=== PATIENT | male | born 1960 | race Caucasian/White ===

== ENCOUNTER 2017-12-12 22:17 | Emergency (ER) | payer MEDICARE, MEDICAID ==
[~2017-12-12] VITALS: Ht 170.2 cm; Wt 72.6 kg
[~2017-12-12 22:17] MED LIST: ATOR10TA52; CARV12.544; DILANTIN; DIVA500T7; LEVE500T3; METF500T5
[2017-12-13] MEDS ORDERED: SODIUM CHLORIDE 0.9% 1,000 ML IVB ONE (03:43)
[2017-12-13] MEDS ORDERED: LEVETIRACETAM INJ 1,000 MG in D5W 5% 100 ML IV ONE (03:45)
[2017-12-13 04:05] LABS: Basophils # (auto) 0.1 uL; Basophils % (auto) 1.2 % (0.0-2.0); Eosinophils # (auto) 0.3 uL; Eosinophils % (auto) 3.3 % (0.0-7.0); Hematocrit 44.4 % (41.0-53.0); Lymphocytes # (auto) 2.2 uL; Lymphocytes % (auto) 25.9 % (10.0-50.0); Mean Corpuscular Hemoglobin 30.3 pg (28.0-32.0); Mean Corpuscular Hgb Conc. 33.8 g/dL (32.0-36.0); Mean Corpuscular Volume 89.7 fL (80.0-100.0); Monocytes % (auto) 11.5 % (0.0-12.0); Neutrophils % (auto) 58.1 % (37.0-80.0); Platelet Count (auto) 206 10^3/uL (140-450); Red Blood Cells 4.95 10^6/uL (4.5-5.90); Red Cell Distribution Width 13.7 % (11.8-14.3); White Blood Cell 8.6 10^3/uL (4.4-10.8)
[2017-12-13 04:18] LABS: Albumin 3.7 g/dL (3.4-5.0); BUN/Creatinine Ratio 24.2; Calcium 9.7 mg/dL (8.5-10.1); Potassium 3.7 mmol/L (3.5-5.1)
[2017-12-13 04:21] LABS: Bilirubin, Total 2.4 mg/dL (0.2-1.0); Total Protein 7.3 g/dL (6.4-8.2)
[2017-12-13] MEDS ORDERED: LEVETIRACETAM 500 MG/5ML INJ IV ONE (05:15)
[2017-12-13 06:16] VITALS: BP 143/78
== END 2017-12-13 07:16 | disposition home or self-care (01) ==
LOC: EDBD 22:17 → ER 22:23
DX: R56.9 Unspecified convulsions (principal); F10.20 Alcohol dependence, uncomplicated; E11.9 Type 2 diabetes mellitus without complications; I10 Essential (primary) hypertension; E78.5 Hyperlipidemia, unspecified
CPT/HCPCS: 36415; 80053; 85025; 93005; 96365; 99285; J1953; J7030; J7060

== ENCOUNTER 2019-03-02 01:43 | Emergency (ER) | payer MEDICARE, OTHER ==
[~2019-03-02] VITALS: Ht 177.8 cm; Wt 81.6 kg
[~2019-03-02 01:43] MED LIST changes: +DIVA1TAB59; -DIVA500T7
[2019-03-02 02:40] LABS: Basophils # (auto) 0.1 uL; Basophils % (auto) 1.1 % (0.0-2.0); Eosinophils # (auto) 0.4 uL; Eosinophils % (auto) 6.8 % (0.0-7.0); Hematocrit 46.4 % (41.0-53.0); Hemoglobin 15.8 g/dL (13.5-17.5); Lymphocytes # (auto) 1.9 uL; Lymphocytes % (auto) 31.8 % (10.0-50.0); Mean Corpuscular Hemoglobin 30.8 pg (28.0-32.0); Mean Corpuscular Hgb Conc. 34.1 g/dL (32.0-36.0); Mean Corpuscular Volume 90.3 fL (80.0-100.0); Monocytes # (auto) 0.7 uL; Monocytes % (auto) 11.4 % (0.0-12.0); Neutrophils % (auto) 48.9 % (37.0-80.0); Nucleated Red Blood Cells % 0.1 %; Platelet Count (auto) 190 10^3/uL (140-450); Red Blood Cells 5.14 10^6/uL (4.5-5.90); Red Cell Distribution Width 13.3 % (11.8-14.3); White Blood Cell 6.1 10^3/uL (4.4-10.8)
[2019-03-02] MEDS ORDERED: LORazepam 2MG/ML-1ML VIAL ONE (02:45)
[2019-03-02] MEDS ORDERED: MVI in SODIUM CHLORIDE 0.9% 1,010 ML ONE (02:57)
[2019-03-02 03:00] LABS: Salicylate < 1.7 mg/dL (2.8-20.0)
[2019-03-02] MEDS ORDERED: LORazepam 2MG/ML-1ML VIAL IV ONE (03:00)
[2019-03-02] MEDS ORDERED: FOLIC ACID 1 MG, MULTIPLE VITAMIN 10 ML, MAGNESIUM SULF SDV 50% 8 MEQ, THIAMINE INJ 100... INJ SCH ×5 (03:00)
[2019-03-02 03:01] LABS: BUN/Creatinine Ratio 7.1; Calcium 8.7 mg/dL (8.5-10.1); Potassium 3.8 mmol/L (3.5-5.1)
[2019-03-02 03:03] LABS: Bilirubin, Total 1.9 mg/dL (0.2-1.0); Total Protein 7.4 g/dL (6.4-8.2)
[2019-03-02 03:10] LABS: Acetaminophen < 2.0 ug/mL (10-30)
[2019-03-02] MEDS ORDERED: PHENYTOIN IV DILANTIN 1,000 MG in SODIUM CHL 0.9% 250 ML IV ONE (03:15)
[2019-03-02] MEDS ORDERED: PHENYTOIN SODIUM 50 MG/ML 5ML INJ VIAL IV ONE ×2 (04:24→04:31)
[2019-03-02] MEDS ORDERED: PHENYTOIN IV DILANTIN 500 MG in SODIUM CHL 0.9% 100 ML IV ONE (04:45)
[2019-03-02] MEDS ORDERED: SODIUM CHLORIDE 0.9% 1,000 ML IV ONE (08:00)
[2019-03-02 09:55] VITALS: BP 138/71
== END 2019-03-02 10:18 | disposition home or self-care (01) ==
LOC: EDBD 01:43 → ER 01:57
DX: F10.239 Alcohol dependence with withdrawal, unspecified (principal); R41.82 Altered mental status, unspecified; E11.9 Type 2 diabetes mellitus without complications; R56.9 Unspecified convulsions; E78.5 Hyperlipidemia, unspecified; I10 Essential (primary) hypertension; Z90.49 Acquired absence of other specified parts of digestive tract; Z79.899 Other long term (current) drug therapy; Y90.2 Blood alcohol level of 40-59 mg/100 ml
CPT/HCPCS: 36415; 70450; 80053; 80185; 80320; 80329; 85025; 96361; 96365; 96367; 96375; 99284; J1165; J2060; J3411; J3475; J7030

== ENCOUNTER 2019-05-30 17:18 | Inpatient (IN) | payer MEDICARE, OTHER ==
[~2019-05-30] VITALS: Ht 175.3 cm; Wt 77.0 kg
[~2019-05-30 17:18] MED LIST changes: -ATOR10TA52; +ATOR10TA52 PO; -CARV12.544; +CARV12.544 PO; -LEVE500T3; +LEVE500T3 PO; +METF-916; -METF500T5
[2019-05-30] MEDS ORDERED: SODIUM CHLORIDE 0.9% 1,000 ML IV ONE ×2 (18:02)
[2019-05-30 18:08] LABS: Basophils # (auto) 0.1 uL; Basophils % (auto) 0.8 % (0.0-2.0); Eosinophils # (auto) 0.4 uL; Eosinophils % (auto) 4.5 % (0.0-7.0); Hematocrit 44.8 % (41.0-53.0); Hemoglobin 15.1 g/dL (13.5-17.5); Lymphocytes # (auto) 1.9 uL; Lymphocytes % (auto) 23.2 % (10.0-50.0); Mean Corpuscular Hemoglobin 29.9 pg (28.0-32.0); Mean Corpuscular Hgb Conc. 33.6 g/dL (32.0-36.0); Monocytes # (auto) 0.6 uL; Monocytes % (auto) 7.7 % (0.0-12.0); Neutrophils # (auto) 5.2 uL; Neutrophils % (auto) 63.8 % (37.0-80.0); Nucleated Red Blood Cells % 0.1 %; Platelet Count (auto) 222 10^3/uL (140-450); Red Blood Cells 5.04 10^6/uL (4.5-5.90); Red Cell Distribution Width 13.1 % (11.8-14.3); White Blood Cell 8.2 10^3/uL (4.4-10.8)
[2019-05-30] MEDS ORDERED: NALOXONE HCL 0.4 MG/ML VIAL ONE (18:09)
[2019-05-30 18:10] LABS: Albumin 4.1 g/dL (3.4-5.0); BUN/Creatinine Ratio 4.5; Calcium 8.2 mg/dL (8.5-10.1); Potassium 3.6 mmol/L (3.5-5.1)
[2019-05-30] MEDS ORDERED: NALOXONE HCL 0.4 MG/ML VIAL IV ONE (18:15)
[2019-05-30] MEDS ORDERED: THIAMINE 100mg/ml INJ (200mg/2ml VIAL) IV ONE (18:15)
[2019-05-30] MEDS ORDERED: LEVETIRACETAM INJ 500 MG in D5W 5% 100 ML IV ONE (18:15)
[2019-05-30 18:18] LABS: Bilirubin, Total 1.4 mg/dL (0.2-1.0); Total Protein 7.4 g/dL (6.4-8.2)
[2019-05-30] MEDS ORDERED: NALOXONE HCL 1MG/ML 2ML SYRINGE IV ONE (18:30)
[2019-05-30 18:34] LABS: Amphetamine Screen, Urine POSITIVE (NEGATIVE); Barbiturate Scree,Urine NEGATIVE (NEGATIVE); Benzodiazephine Screen, Urine NEGATIVE (NEGATIVE); Cannabinoid Screen, Urine NEGATIVE (NEGATIVE); Cocaine Screen, Urine NEGATIVE (NEGATIVE); Opiate Scree,Urine NEGATIVE (NEGATIVE); Phencyclidine Screen, Urine NEGATIVE (NEGATIVE)
[2019-05-30] MEDS ORDERED: ONDANSETRON HCL 4 MG/2 ML VIAL IV PRN (21:30)
[2019-05-30] MEDS ORDERED: chlordiazePOXIDE HCL 25 MG CAP PO PRN (21:30)
[2019-05-30] MEDS ORDERED: ACETAMINOPHEN 325 MG TAB PO PRN (21:30)
[2019-05-30] MEDS ORDERED: MORPHINE SULF INJ 2 MG/ML SYRINGE 1ML IV PRN (22:00)
[2019-05-30] MEDS ORDERED: NITROGLYCERIN 0.4 MG SL TAB SL PRN (22:00)
[2019-05-30] MEDS: FAMOTIDINE 20 MG TAB PO SCH (22:38)
[2019-05-30] MEDS: ATORVASTATIN 20 MG TAB PO SCH (22:38)
[2019-05-30] MEDS: PHENYTOIN SODIUM 100 MG CAP PO SCH (22:38)
[2019-05-30] MEDS: LEVETIRACETAM 500 MG TAB PO SCH (22:39)
[2019-05-30] MEDS: CARVEDILOL 12.5 MG TAB PO SCH (22:42)
[2019-05-30] MEDS: SODIUM CHLORIDE 0.9% 1,000 ML IV SCH (22:47)
[2019-05-30 23:16] VITALS: BP 136/85
[2019-05-30 23:30] LABS: Urine Bacteria FEW /hpf (None Seen); Urine Blood Negative /uL (Negative); Urine Hyaline Cast FEW /lpf (0 - 2); Urine Specific Gravity 1.005 (1.001-1.035); Urine WBC <1 /hpf (0 - 3)
--- NOTE | 2019-05-30 23:40 | NUR ---
Telemetry admit from ER JUDD SCOTT admitted to Telemetry unit after SBAR received. Patient oriented to Ольга Rodrigues, primary RN, unit, room, bed, and unit policies regarding patient care and visiting hours. Patient now on continuous telemetry monitoring, tele box # [[id number]] and telemetry reading on arrival to unit is [SR [id number]]. Patient weighed by bedscale and encouraged to call if they need something. All questions and concerns addressed, patient verbalized understanding. Note: []
[2019-05-31] VITALS (8 sets, daily range): BP systolic 114–142; BP diastolic 74–81
--- NOTE | 2019-05-31 03:25 | NUR ---
PATIENT SLEEPING. NO S/S OF DISTRESS NOTED. MORENO CATH IN PLACE DRAINING GRAVITY. BED IN LOWEST POSITION WITH PADDED SIDE RAILS UP X 2. CALL TANNER WITHIN REACH. ALARM ON. SEIZURE PRECAUTION IN PLACE. CONTINUE CARE.
[2019-05-31 07:12] LABS: Basophils # (auto) 0.1 uL; Basophils % (auto) 0.9 % (0.0-2.0); Eosinophils # (auto) 0.6 uL; Hemoglobin 14.8 g/dL (13.5-17.5); Lymphocytes # (auto) 1.7 uL; Lymphocytes % (auto) 20.5 % (10.0-50.0); Mean Corpuscular Hgb Conc. 33.6 g/dL (32.0-36.0); Mean Corpuscular Volume 89.2 fL (80.0-100.0); Monocytes # (auto) 0.7 uL; Monocytes % (auto) 7.9 % (0.0-12.0); Neutrophils # (auto) 5.4 uL; Neutrophils % (auto) 63.7 % (37.0-80.0); Nucleated Red Blood Cells % 0.1 %; Platelet Count (auto) 196 10^3/uL (140-450); Red Blood Cells 4.93 10^6/uL (4.5-5.90); Red Cell Distribution Width 13.3 % (11.8-14.3); White Blood Cell 8.4 10^3/uL (4.4-10.8)
--- NOTE | 2019-05-31 07:21 | NUR ---
Opening Shift Note Received report and assumed care of patient. Patient is awake, alert and oriented. No S/S of distress noted and patient denies pain. Instructed patient on plan of care and to call for assistance as needed. Will continue to monitor.
[2019-05-31 07:24] LABS: Calcium 8.5 mg/dL (8.5-10.1); Potassium 4.3 mmol/L (3.5-5.1)
[2019-05-31 07:27] LABS: BUN/Creatinine Ratio 12.5
[2019-05-31] MEDS: PHENYTOIN SODIUM 100 MG CAP PO SCH ×2 (09:34→21:11)
[2019-05-31] MEDS: FAMOTIDINE 20 MG TAB PO SCH ×2 (09:34→21:11)
[2019-05-31] MEDS: CARVEDILOL 12.5 MG TAB PO SCH ×2 (09:34→21:11)
[2019-05-31] MEDS: LEVETIRACETAM 500 MG TAB PO SCH ×2 (09:35→21:11)
[2019-05-31] MEDS: SODIUM CHLORIDE 0.9% 1,000 ML IV SCH ×2 (09:35→12:15)
[2019-05-31] MEDS ORDERED: THIAMINE HCL 100 MG TAB PO SCH (10:00)
[2019-05-31] MEDS ORDERED: FOLIC ACID 1 MG TAB PO SCH (10:00)
[2019-05-31] MEDS: FOLIC ACID 1 MG, MULTIPLE VITAMIN 10 ML, MAGNESIUM SULF SDV 50% 8 MEQ, THIAMINE INJ 100... INJ SCH ×5 (11:22)
--- NOTE | 2019-05-31 11:34 | NUR ---
PATIENT PULL HIS IV OUT, DISCONNECTED HIS MORENO CATHETER, THEN TOOK OFF IN THE HALLWAYS, I DID RAN AFTER THE PT, CALLED HIM BY HIS NAME PT CONTINUE WALKING STRAIGHT FORWARD IN VERY STRONG FAST STEPS, HOLD PATEIN'S LEFT ARM TO PROTECT PT FROM ANY FALLS, FLAT AFFECT IN PATIENT'S FACE NOTICE, CALLED FOR HELP, NURSES HELP PATIENT TO PUT PT ON A WHEEL CHAIR AND ESCORT HIM BACK TO HIS ROOM, ASSISTED TO GET IN BED, EYE ROLLING BACK NOTED, PT WAS VERY CONFUSED.
--- NOTE | 2019-05-31 11:45 | NUR ---
PATIENT CAME BACK TO HIS NORMAL STATE LINE, ORIENTED X4 NAME, PALCE, TIME AND SITUATION, NOT CLEAR ON TIME YET
--- NOTE | 2019-05-31 11:50 | NUR ---
IV insertion IV access obtained, via clean sterile technique by inserting 20 gauge catheter at after attempt(s). IV secured properly. No trauma to site. Patient tolerated procedure well.
[2019-05-31] MEDS: LORazepam 2MG/ML-1ML VIAL IV PRN (11:52)
--- NOTE | 2019-05-31 12:11 | NUR ---
DR WOLF AT BED SIDE FOLLOWING UP ON PT, MADE AWARE OF PATIENT'S UPDATE
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
--- NOTE | 2019-05-31 15:00 | NUR ---
PT CONTINUE SLEEPING, OXYGEN 2 L, SLEEPING APNEA NOTED, HEAD OF BED ELEVATED, CONTINUE MONITORING
--- NOTE | 2019-05-31 16:00 | NUR ---
FAMILY PATIENT MOM AT BED SIDE AWARE THAT HER SON TOOK OFF AND KEPT WALKING IN THE HALLWAYS, STATED < THIS HIS SEIZURE>, PT IS AWAKE, NO DISTRESS NOTED
--- NOTE | 2019-05-31 16:15 | NUR ---
LATE LUNCH PATIENT START TO EAT LUNCH, STABLE, NO DISTRESS NOTED
--- NOTE | 2019-05-31 17:30 | NUR ---
PATIENT MOM AT BE SIDE, PATIENT REQUESTED BRUNEIAN FRIES FROM HIS MOM.
--- NOTE | 2019-05-31 18:34 | NUR ---
NO SEIZURE ACTIVITY NOTED, CONTINUE MONITORING
--- NOTE | 2019-05-31 20:00 | NUR ---
Opening Shift Note Assumed care of patient, awake and alert. No S/S of distress/SOB or pain. Patient showing no sign of seizure activity. Instructed on POC and to call for assist PRN, will continue to monitor for changes Q1hr and PRN.
[2019-05-31] MEDS: ATORVASTATIN 20 MG TAB PO SCH (21:11)
[2019-06-01 05:54] VITALS: BP 114/71
[2019-06-01] MEDS: SODIUM CHLORIDE 0.9% 1,000 ML IV SCH ×4 (08:15→21:35)
[2019-06-01 09:00] VITALS: BP 122/75
[2019-06-01] MEDS: PHENYTOIN SODIUM 100 MG CAP PO SCH ×2 (09:51→21:23)
[2019-06-01] MEDS: LEVETIRACETAM 500 MG TAB PO SCH ×2 (09:51→21:22)
[2019-06-01] MEDS: FAMOTIDINE 20 MG TAB PO SCH ×2 (09:51→21:21)
[2019-06-01] MEDS: CARVEDILOL 12.5 MG TAB PO SCH ×2 (09:52→21:24)
--- NOTE | 2019-06-01 10:09 | NUR ---
Opening Shift Note Assumed care of patient, awake and alert. No S/S of distress/SOB or pain. Skin is warm and dry to touch , no signs any seizure at this time. Seizure precaution initiated. Instructed on POC and to call for assist PRN, will continue to monitor for changes Q1hr and PRN.
[2019-06-01] MEDS: FOLIC ACID 1 MG, MULTIPLE VITAMIN 10 ML, MAGNESIUM SULF SDV 50% 8 MEQ, THIAMINE INJ 100... INJ SCH ×5 (12:09)
[2019-06-01 13:00] VITALS: BP 129/80
[2019-06-01] MEDS: LORazepam 2MG/ML-1ML VIAL IV PRN (13:34)
--- NOTE | 2019-06-01 20:00 | NUR ---
Opening Shift Note Assumed care of patient, awake and alert. No S/S of distress/SOB or pain. Patient showing no sign of seizures at this time. Instructed on POC and to call for assist PRN, will continue to monitor for changes Q1hr and PRN.
[2019-06-01] MEDS: ATORVASTATIN 20 MG TAB PO SCH (21:23)
[2019-06-01 21:43] VITALS: BP 144/81
[2019-06-02] MEDS: SODIUM CHLORIDE 0.9% 1,000 ML IV SCH ×2 (04:22→10:55)
[2019-06-02 04:43] VITALS: BP 143/78
[2019-06-02 08:41] VITALS: BP 139/83
[2019-06-02] MEDS: CARVEDILOL 12.5 MG TAB PO SCH (09:32)
[2019-06-02] MEDS: FAMOTIDINE 20 MG TAB PO SCH (09:32)
[2019-06-02] MEDS: LEVETIRACETAM 500 MG TAB PO SCH (09:32)
[2019-06-02] MEDS: PHENYTOIN SODIUM 100 MG CAP PO SCH (09:32)
[2019-06-02 10:18] VITALS: BP 139/83
[2019-06-02] MEDS: FOLIC ACID 1 MG, MULTIPLE VITAMIN 10 ML, MAGNESIUM SULF SDV 50% 8 MEQ, THIAMINE INJ 100... INJ SCH ×5 (12:00)
--- NOTE | 2019-06-02 12:24 | NUR ---
Discharge instructions given as ordered. Encourage to follow up with PMD (Follow up with Dr. Tinsley in 1-2 weeks Address: [address] [place] [id number] . Patient has insurance but NO PCP. Given Alexia Ray RN coordinator #[phone] Ext : [phone] )as instructed. All questions and concerns addressed. Patient verbalized understanding. Medication reconciliation form completed and copy given to patient. IV removed with catheter intact, pressure dressing applied. Telemetry unit returned to ICU. Patient taken to vehicle via wheelchair with all personal belongings, accompanied by staff and family member. No distress noted at time of departure.
== END 2019-06-02 12:25 | disposition home or self-care (01) | DRG 100 ==
LOC: ER 17:18 → EDBD 17:18 → TELE 17:19 → TELE-EAST 23:16
PROVIDERS: ADMIT Nurse Practitioner; ATTEND Family Medicine
DX: G40.909 Epilepsy, unspecified, not intractable, without status epilepticus (principal); G92 Toxic encephalopathy; F15.10 Other stimulant abuse, uncomplicated; I10 Essential (primary) hypertension; E11.9 Type 2 diabetes mellitus without complications; E78.5 Hyperlipidemia, unspecified; Y90.6 Blood alcohol level of 120-199 mg/100 ml; F10.129 Alcohol abuse with intoxication, unspecified; E86.0 Dehydration; Z79.899 Other long term (current) drug therapy; Z82.3 Family history of stroke; Z91.14 Patient's other noncompliance with medication regimen; Z83.3 Family history of diabetes mellitus; Z90.49 Acquired absence of other specified parts of digestive tract
CPT/HCPCS: 36415; 70450; 70551; 71045; 80048; 80053; 80307; 80320; 81001; 84484; 85025; 93005; 96361; 96365; 96375; 97163; 99291; G0378; J7060

== ENCOUNTER 2020-04-17 01:27 | Emergency (ER) | payer MEDICARE, OTHER ==
[~2020-04-17] VITALS: Ht 185.4 cm; Wt 77.1 kg
[~2020-04-17 01:27] MED LIST changes: -DILANTIN; -DIVA1TAB59; -METF-916
[2020-04-17 02:44] LABS: Basophils # (auto) 0.1 10 ^3/uL (0-0.2); Basophils % (auto) 0.8 % (0.0-2.0); Eosinophils # (auto) 0.3 10 ^3/uL (0-0.8); Eosinophils % (auto) 4.9 % (0.0-7.0); Hemoglobin 15.2 g/dL (13.5-17.5); Lymphocytes # (auto) 1.2 10 ^3/uL (0.4-5.4); Lymphocytes % (auto) 17.8 % (10.0-50.0); Mean Corpuscular Hgb Conc. 34.5 g/dL (32.0-36.0); Mean Corpuscular Volume 89.9 fL (80.0-100.0); Monocytes # (auto) 0.8 10 ^3/uL (0-1.3); Monocytes % (auto) 11.3 % (0.0-12.0); Neutrophils # (auto) 4.4 10 ^3/uL (1.6-8.6); Neutrophils % (auto) 65.2 % (37.0-80.0); Platelet Count (auto) 190 10^3/uL (140-450); Red Blood Cells 4.89 10^6/uL (4.5-5.90); Red Cell Distribution Width 13.8 % (11.8-14.3); White Blood Cell 6.8 10^3/uL (4.4-10.8)
[2020-04-17 03:10] LABS: Alanine Aminotransferase 34 U/L (16-61); Albumin 3.9 g/dL (3.4-5.0); Anion Gap 4 (5-15); Aspartate Aminotransferase 33 U/L (15-37); BUN/Creatinine Ratio 11.1; Blood Alcohol < 3.0 mg/dL (0-5); Blood Urea Nitrogen 9 mg/dL (7-18); Calcium 9.1 mg/dL (8.5-10.1); Carbon Dioxide 30 mmol/L (21-32); Chloride 107 mmol/L (98-107); GFR African American 126 mL/min; GFR Non-African American 104 mL/min; Glucose 101 mg/dL (74-106); Potassium 3.9 mmol/L (3.5-5.1); Sodium 141 mmol/L (136-145)
[2020-04-17 03:12] LABS: Alkaline Phosphatase 86 U/L (45-117); Bilirubin, Total 1.8 mg/dL (0.2-1.0); Total Protein 7.5 g/dL (6.4-8.2)
[2020-04-17] MEDS ORDERED: levETIRAcetam 500 MG TAB PO ONE (03:15)
[2020-04-17] MEDS ORDERED: LORazepam 2MG/ML-1ML VIAL ONE (04:40)
[2020-04-17] MEDS ORDERED: LORazepam 2MG/ML-1ML VIAL IM ONE (04:45)
[2020-04-17 12:05] VITALS: BP 128/97
== END 2020-04-17 12:33 | disposition home or self-care (01) ==
LOC: EDBD 01:27 → ER 01:30
DX: R41.82 Altered mental status, unspecified (principal); R56.9 Unspecified convulsions; F19.10 Other psychoactive substance abuse, uncomplicated; I10 Essential (primary) hypertension; E78.5 Hyperlipidemia, unspecified; E11.9 Type 2 diabetes mellitus without complications
CPT/HCPCS: 36415; 70450; 80053; 80320; 85025; 96372; 99285; J2060